=== PATIENT | female | born 1940 | race Caucasian/White ===

== ENCOUNTER 2017-12-07 17:54 | Emergency (ER) | payer MEDICARE, OTHER ==
[~2017-12-07 17:54] MED LIST: Iopamidol 370 76% 100 ML VIAL ONE
[2017-12-07 18:41] LABS: #Basophils 0.1 thou/uL (0.0-0.2); #Eosinphils 0.2 thou/uL (0.0-0.7); #Lymphocytes 1.7 thou/uL (1.20-3.40); #Monocytes 1.3 thou/uL (0.11-0.59); #Neutrophils 8.3 thou/uL (1.40-6.50); %Basophils 0.9 % (0.0-1.0); %Lymphocytes 14.9 % (21.0-51.0); %Monocytes 10.9 % (0.0-10.0); %Neutrophils 71.2 % (42.0-75.0); MDiff Complete? YES; Macrocytosis SLIGHT = 6-15 cells (100X) (0-5/hpf); Mean Corpuscular HGB CONC 34.1 g/dL (32.0-36.0); Mean Corpuscular Hemoglobin 34.4 pg (27.0-31.0); Mean Platelet Volume 7.4 fL (7.4-10.4); Platelet Count 237 thou/uL (130-400); RBC Distribution Width 11.6 % (11.5-14.5); Red Blood Cell (RBC) Count 4.34 mill/uL (4.20-5.40); White Blood Cell (WBC) Count 11.7 thou/uL (4.8-10.8)
[2017-12-07 18:44] LABS: ALT (SGPT) 9 U/L (8-55); AST (SGOT) 16 U/L (5-34); Albumin 4.2 g/dL (3.4-4.8); Alkaline Phosphatase 103 U/L (40-150); Anion Gap 15 mmol/L (10-20); BUN (Urea Nitrogen) 13 mg/dL (9.8-20.1); Bilirubin, Total 0.5 mg/dL (0.2-1.2); Calc. Creatinine Clearance 0 mL/min (70-130); Calcium 9.7 mg/dL (7.8-10.44); Carbon Dioxide 25 mmol/L (23-31); Chloride 98 mmol/L (98-107); Estimated GFR-MDRD 73; Globulin 3.5 g/dL (2.4-3.5); Glucose 106 mg/dL (83-110); Lipase 5 U/L (8-78); Potassium 4.1 mmol/L (3.5-5.1); Protein, Total 7.7 g/dL (6.0-8.3); Sodium 134 mmol/L (136-145)
[2017-12-07 18:46] LABS: Clarity Clear (Clear); Glucose, Urine (Dipstick) Negative (Negative); Leukocyte Trace (Negative); Nitrite Negative (Negative); Protein, Urine (Dipstick) Negative (Neg-Trace); Specific Gravity, Urine 1.006 (1.005-1.030); Troponin I Less than 0.010 ng/mL (< 0.028); Urobilinogen 0.2 mg/dL (0.2-1.0); pH, Urine 5.5 (5.0-9.0)
[2017-12-07 18:47] LABS: Bacteria/HPF Rare-Few HPF (None Seen); Bilirubin Negative (Negative); Blood, Urine Small (Negative); RBC/HPF 0-3 HPF (0-3); Squamous Epithelial 0-3 HPF (0-3); WBC/HPF 0-3 HPF (0-3)
[2017-12-07] MEDS ORDERED: EPINEPHrine 1 MG/10 ML Abboject SYRINGE ONE ×2 (19:01→19:02)
[2017-12-07] MEDS ORDERED: methylPREDNISolone Sod Succ/PF 125 MG/2 ML VIAL ONE (19:04)
[2017-12-07] MEDS ORDERED: EPINEPHrine 1 mg/ml MDV (1ml Charge) ONE (19:04)
[2017-12-07] MEDS ORDERED: diphenhydrAMINE 50 MG/ML VIAL ONE (19:04)
--- NOTE | 2017-12-07 20:33 | CT ---
CT ANGIO CHEST WITH CONTRAST: 12/07/2017 TECHNIQUE: A spiral CT of the chest was performed for evaluation of chest pain and an elevated D-dimer. Axial s lices were acquired and then oblique coronal reformations through the pulmonary arteries were done. FINDINGS: There is good opacification of the pulmonary arteries. No defects are seen to suggest emboli. There is no sign of aortic aneurysm or dissection. Some mild to moderate arteriosclerotic change is seen in the aorta, and some calcification is suggested in the left coronary system. No pericardial effusi on is seen. No mediastinal mass or adenopathy is seen. The patient does have a hiatal hernia, perha ps with some retained food in the distal portion of it. The wall of the distal esophagus is slightly thickened. Emphysematous changes are present throughout the lungs. There is some basilar atelectasis and/or sca rring in the lower lobes, posteriorly. No effusions are seen. There is no sign of pneumonia. IMPRESSION: 1. No evidence of pulmonary embolism. 2. Arteriosclerosis. 3. Hiatal hernia with some mild thickening of the distal esophagus. 4. Emphysematous changes with basilar atelectasis and/or scarring. POS: HOME
--- NOTE | 2017-12-07 20:34 | RAD ---
CHEST TWO VIEWS: 12/07/2017 COMPARISON: 10/06/2012 FINDINGS: Heart size is stable. There are no congestive changes or large pleural effusions. Calcification is seen in the aortic arch. The mediastinum appears normal, and the trachea is midline. There is no si gn of pneumonia. There is a small amount of streaking in the lung bases, left a little more so than right, probably chronic or atelectasis. Degenerative changes are seen in the spine, with disk space narrowing prominent in some of the lower thoracic levels. IMPRESSION: Chronic changes but no acute findings. POS: HOME
== END 2017-12-07 20:27 | disposition home or self-care (01) ==
LOC: BURERS 17:54
DX: J44.9 Chronic obstructive pulmonary disease, unspecified (principal); R60.0 Localized edema; F17.210 Nicotine dependence, cigarettes, uncomplicated; Z79.899 Other long term (current) drug therapy
CPT/HCPCS: 71046; 71275; 80053; 81003; 81015; 82553; 83605; 83690; 83880; 84484; 85025; 85379; 93005; 94760; A4216; J0171; J1200; J2930